=== PATIENT | female | born 1940 | race Caucasian/White ===

== ENCOUNTER 2023-09-26 17:03 | Emergency (ER) | payer MEDICARE ==
[~2023-09-26] VITALS: Ht 165.1 cm; Wt 65.8 kg
[2023-09-26 17:07] VITALS: BP 162/78
== END 2023-09-26 20:31 | disposition home or self-care (01) ==
LOC: ER 17:03
DX: M25.552 Pain in left hip (principal); M25.512 Pain in left shoulder
CPT/HCPCS: 73000; 73502; 99283-25